=== PATIENT | male | born 1975 | race Caucasian/White ===

== ENCOUNTER 2024-03-27 09:09 | Emergency (ER) | payer MEDICAID, OTHER ==
[~2024-03-27] VITALS: Ht 182.9 cm; Wt 89.5 kg
[2024-03-27 10:48] LABS: ALANINE AMINOTRANSFERASE 53 U/L (12-78); ALBUMIN 4.3 G/DL (3.4-5.0); ALBUMIN/GLOBULIN RATIO 1.2 (1.1-1.5); ALKALINE PHOSPHATASE 97 IU/L (46-116); AMYLASE 44 U/L (25-115); ANION GAP 14 (8-16); ASPARTATE AMINO TRANSFERASE 20 U/L (10-37); BILIRUBIN,TOTAL 0.6 MG/DL (0.1-1.0); CALCIUM 9.6 MG/DL (8.5-10.1); CHLORIDE 104 MMOL/L (99-107); CREATININE 1.12 MG/DL (0.60-1.10); GLUCOSE 137 MG/DL (70-104); LIPASE 39 U/L (16-77); POTASSIUM 3.7 MMOL/L (3.5-5.1); SODIUM 139 MMOL/L (135-145); TOTAL CARBON DIOXIDE 21.3 MMOL/L (24-32); TOTAL PROTEIN 7.9 G/DL (6.4-8.2); eCRCL 89 ML/MIN; eGFR 70 ML/MIN
[2024-03-27 10:53] LABS: BLOOD UREA NITROGEN 13 MG/DL (7-18); BUN/CREATININE RATIO 11.6 (10.0-20.0)
[2024-03-27] MEDS: meperidine/PF 25mg/ml syringe IV ONE (12:45)
[2024-03-27] MEDS ORDERED: sildenafil citrate 20mg tablet PO SCH (13:00)
[2024-03-27 13:04] LABS: BILIRUBIN,URINE NEGATIVE (Neg); CLARITY,URINE CLEAR (Clear); COLOR,URINE YELLOW (Yellow); GLUCOSE, URINE NEGATIVE (Neg); KETONES,URINE NEGATIVE (Neg); LEUKOCYTE ESTERASE ,URINE NEGATIVE (Neg); NITRITES, URINE NEGATIVE (Neg); OCCULT BLOOD,URINE MODERATE (Neg); PROTEIN,URINE NEGATIVE (Neg); UROBILINOGEN,URINE 0.2 E.U/dL (0.2-1.0)
[2024-03-27] MEDS: ketorolac tromethamine 15mg/ml inj. IV ONE (13:06)
[2024-03-27] MEDS: normal saline 1000ML IV soln IVB ONE ×2 (13:07→14:35)
[2024-03-27 13:08] LABS: UA COLLECTION TYPE CLN CATCH MIDSTREAM
[2024-03-27 13:09] LABS: MUCUS STRANDS MODERATE /LPF (Neg); SQUAMOUS EPITHELIAL CELL,UR FEW /LPF (FEW)
[2024-03-27 13:10] LABS: BACTERIA,URINE FEW /HPF (Neg); WBC,URINE 0-4 /HPF (0-4)
[2024-03-27] MEDS: sildenafil citrate 20mg tablet PO ONE (14:02)
[2024-03-27 14:15] LABS: HEMATOCRIT 47.2 % (43.5-53.7); HEMOGLOBIN 15.9 G/DL (12.5-16.3); MEAN CORPUSCULAR HEMOGLOBIN 29.2 PG (27-31.2); MEAN CORPUSCULAR HGB CONC 33.6 % (32-36); MEAN CORPUSCULAR VOLUME 87.1 FL (81-97); PLATELET COUNT 274 X10'3 (130-400); RED BLOOD COUNT 5.42 X10'6 (4.30-5.90); RED CELL DISTRIBUTION WIDTH 13.3 % (11-16); WHITE BLOOD COUNT 21.8 X10'3 (4.5-11.0)
[2024-03-27 14:16] LABS: BASOPHILS % 0 % (0-2); EOSINOPHILS # (AUTO) 0.4 X10'3 (0-0.9); EOSINOPHILS % (AUTO) 2 % (0-5); LYMPHOCYTES # (AUTO) 5.2 X10'3 (0.6-4.1); LYMPHOCYTES % 24 % (24-44); MONOCYTES # (AUTO) 1.1 X10'3 (0-0.9); MONOCYTES % 5 % (0-12); NEUTROPHILS # (AUTO) 14.8 X10'3 (>=1.4); SEGMENTED NEUTROPHILS % 68 % (36-66)
[2024-03-27] MEDS: normal saline 1000ml 1,000 ML IV ONE (14:41)
[2024-03-27] MEDS ORDERED: NAPR-56 PO (15:05)
[2024-03-27] MEDS ORDERED: TADA5TAB2 PO (15:05)
[2024-03-27 15:38] VITALS: TEMP 97.6
[2024-03-27] MEDS: CefTRIAXone 2gm/D5W 50ml BAG 50 ML IV ONE (15:42)
[2024-03-27 16:26] VITALS: BP 134/95; PULSE 73; RESP 18; O2SAT 98
== END 2024-03-27 16:18 | disposition home or self-care (01) ==
LOC: ER 09:09
DX: N23 Unspecified renal colic (principal); D72.828 Other elevated white blood cell count; G89.29 Other chronic pain; M54.9 Dorsalgia, unspecified; Z88.8 Allergy status to other drugs, medicaments and biological substances; Z79.899 Other long term (current) drug therapy
CPT/HCPCS: 36415; 74176; 80053; 81001; 82150; 83690; 85025; 96361; 96365; 96375; 99285; J0696; J1885; J7030